=== PATIENT | male | born 2000 | race Caucasian/White ===

== ENCOUNTER 2024-07-19 20:15 | Emergency (ER) | payer SELFPAY ==
[2024-07-19 20:16] VITALS: BP 129/68
[2024-07-19 20:31] VITALS: BMI 31.3
--- NOTE | 2024-07-22 10:55 | ED.GENMED ---
History of Present Illness
General
Chief Complaint: Skin Surface Trauma
Source: patient
Exam Limitations: none
Time Seen by Provider: 07/19/24 20:48
Nursing documentation reviewed up to this point in time: agreed with
History of Present Illness
History of Present Illness:
PT IS A 23 Y/O M R hand dominant
here with L thumb skin avulsion while at work. pt says he was using a knife and accidentally cut his thumb
it is on the nail surface with part of his nailplate involved
bleeding is conrolled with pressure
he brought the fingertip in case it could be repaired
tetanus is believes within 5 years
no numbness/tingling/weakness.
Past History
Past History
ED Past Medical History: Asthma
ED Past Surgical History: None
Social History
Tobacco: Non-smoker
Alcohol: None
Drug: None
Personal: Single
Living: with family
Employment: Employed
Review of Systems
Review of Systems
Allergies reviewed?: Yes
All Other Systems: Not applicable
Phy Exam
Physical Exam
Physical Exam:
GENERAL: Alert , in no apparent distress, comfortable at rest
HEAD: NCAT
CV: 2+ radial pulse, cap refill itnact
NEUROLOGICAL: Alert and oriented, no focal neuro deficits, , 5/5 strength, sensation intact, ambulation slight limp right leg
SKIN: Warm and dry, irregular shpaed 1 x 0.25 skin avulsion involving L dorsal thumb fingertip, skin adn a small corner of the nail plate
small area of oozing controlled with pressure
no active bleeding
MUSCULOSKELETAL: thumb full ROM
skin is tender
not deep to bone
PSYCH: Normal and appropriate interaction.
Course
Vital Signs
Initial and Last Documented VS:
Initial Vital Signs
Temp Pulse Resp BP Pulse Ox
37.1 C 75 18 129/68 98
07/19/24 20:16 07/19/24 20:16 07/19/24 20:16 07/19/24 20:16 07/19/24 20:16
Last Documented Vital Signs
Temp Pulse Resp BP Pulse Ox
37.1 C 75 18 129/68 98
07/19/24 20:16 07/19/24 20:16 07/19/24 20:16 07/19/24 20:16 07/19/24 20:16
Procedures
Digital Block
Location of injection for digital block: base of digit
Indiction for Digital Block: anesthesia for exam
Was sensory exam normal prior to exam?: intack pin prick
Type of anesthesia: 1% Lidocaine w/o EPI
Complications: none- good anesthesia
MDM/Problems Addressed
Differential Diagnosis Includes:
avulsion, laceration
MDM/Problems Addressed:
23 y/o M
R hand dominant
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
[employer] ground operations supervisor aware
bleeding controlled
it is a fingertip skin avulsion, including a triagular piece of the nail plate not involving the prox nail fold
not deep to bone
irrigated
numbed with digital block
gel foam dressing applied to control bleeding
wrapped and observed ro 20 mintues, no rebleeding
d/c home
wound care instructions
tetanus UTD
workman's comp
*Critical Care Note
Total Time (30-74mins, 75-104mins- exclusive of procedures): Not Applicable
ED Attending Note
-
Portions of this chart may have been created with voice recognition software.� Occasional wrong word or��sound alike� substitutions may have occurred due to the inherent limitations of voice recognition software.
Discharge Plan
Departure
Patient Disposition: Home (Routine Discharge)
Date of Disposition: 07/19/24
Time of Disposition: 21:52
Patient with high blood pressure during this ER visit?: No
Condition: Fair
Covid-19: Not Applicable
Discharge Problem:
Avulsion of skin of left thumb
Instructions: Wound Care (DC)
Prescriptions:
No Action
cephalexin 500 MG capsule
500 mg PO QID Qty: 28 0RF
Referrals:
NONE,* [Family Provider] -
Stand Alone Forms: Return to Work
Activity Restrictions/Additional Instructions:
Leave this dressing in place for 48 hours after that you can remove it and wash your hand twice a day. Hold pressure if the bleeding starts again but if it continues return. Take Tylenol or Motrin for pain. It is important that you follow-up with
your Workmen's Comp. clinic or urgent care to make sure that this is all covered. Do not return to work until your thumb has been checked. Return for any concern
Interventions
Interventions:
*Risk Screen - Suicide Last Done: 07/19/24 20:32
*General Assessment Last Done: 07/19/24 20:32
*Neglect/Abuse Screening Last Done: 07/19/24 20:32
*ED- Fall Risk Assessment Last Done: 07/19/24 20:32
*ED COVID-19 Vaccine History Last Done: 07/19/24 20:32
*Nursing Disposition Last Done: 07/19/24 22:15
ED-Skin Assessment Last Done: 07/19/24 20:32
Discharge Date and Time
Discharge Date/Time: 07/19/24 22:20
Print Language: BENGALI
== END 2024-07-19 22:20 | disposition home or self-care (01) ==
LOC: EMR 20:15
PROVIDERS: EMERGENCY PHYSICIAN Emergency Medicine
DX: S61.112A Laceration without foreign body of left thumb with damage to nail, initial encounter (principal); W26.0XXA Contact with knife, initial encounter; Y99.0 Civilian activity done for income or pay
CPT/HCPCS: 99284; 64450